=== PATIENT | female | born 1935 | race Caucasian/White ===

== ENCOUNTER 2017-12-12 17:43 | Emergency (ER) | payer MEDICARE, MEDICAID ==
[~2017-12-12] VITALS: Ht 167.6 cm; Wt 68.0 kg
[~2017-12-12 17:43] MED LIST: ACET325T53 PO; ALPR1TAB2 PO; BISA10SU8 RC; BUDE0.5A4 NEB; CYAN500T4 PO; DILT30TA2 PO; IPRA3AMP IH; LEVO25TA7 PO; OXYC-121 PO; PRED10TA PO; SENN-167 PO; THEO400T PO
--- NOTE | 2017-12-12 18:06 | NUR ---
[facility] FROM [facility] DT COUGH X 3 WEEKS WITH EPISODE OF SOB./ PATIENT RECEIVED ON O2 VIA NC @3LPM, SATING 95%. PATIENT NOT IN DISTRESS. AFEBRILE. VSS
--- NOTE | 2017-12-12 18:26 | NUR ---
RT AWRE OF BREATHING TREATMENT
[2017-12-12 18:30] LABS: BASOPHILS % (AUTO) 0.6 % (0.0-2.0); EOSINOPHILS # (AUTO) 0.3 /CMM (0.0-0.7); EOSINOPHILS % (AUTO) 3.5 % (0.0-6.0); HEMATOCRIT 35 % (33-45); HEMOGLOBIN 11.8 g/dL (11.5-14.8); LYMPHOCYTES # (AUTO) 2.1 /CMM (0.8-4.8); MEAN CORPUSCULAR HEMOGLOBIN 30 PG (26.0-33.0); MEAN CORPUSCULAR HGB CONC 34 g/dl (31.0-36.0); MEAN CORPUSCULAR VOLUME 87 fL (82-100); MONOCYTES # (AUTO) 0.6 /CMM (0.1-1.30); MONOCYTES % (AUTO) 6.8 % (2.0-12.0); NEUTROPHILS # (AUTO) 5.1 /CMM (1.8-8.9); NEUTROPHILS % (AUTO) 63.1 % (43.0-81.0); PLATELET COUNT (AUTO) 190 /CMM (150-450); RDW COEFFICIENT OF VARIATION 15.4 (11.5-15.0); WHITE BLOOD COUNT (AUTO) 8.1 K/uL (4.3-11.0)
[2017-12-12] MEDS ORDERED: IPRATROPIUM NEB FS 0.5 MG/2.5 ML AMPUL.NEB NEB ONE (18:30)
[2017-12-12] MEDS ORDERED: ALBUTEROL FS 2.5 MG/3 ML VIAL.NEB NEB ONE (18:30)
[2017-12-12 18:34] LABS: ABG BASE EXCESS 6.8 mmol/L; ABG OXYGEN SATURATION 93.9 % (92.0-98.5); ABG PCO2 55.7 mmHg (35.0-45.0); ABG PH 7.393 (7.350-7.450); ABG PO2 70.9 mmHg (75.0-100.0); AaDO2 92.1 mmHg; COHb 0.1 % (0.5-1.5); MetHb 0.5 % (0.0-1.5); O2Hb 93.3 % (94.0-97.0); SITE, ABG Right Radial; VENT MODE, BG 3L NC
[2017-12-12 18:39] LABS: CALCIUM, SERUM 8.7 mg/dL (8.5-10.1); CARBON DIOXIDE 32 mmol/L (21-32); CHLORIDE 103 mmol/L (98-107); CREATININE 0.8 mg/dL (0.6-1.3); GLUCOSE 89 mg/dL (74-106); POTASSIUM 3.9 mmol/L (3.5-5.1); SODIUM SERUM 139 mmol/L (136-145); UREA NITROGEN, BLOOD 18 mg/dL (7-18)
[2017-12-12 18:46] LABS: TROPONIN I < 0.017 ng/mL (0.00-0.056)
[2017-12-12 18:54] LABS: B-TYPE NATRIURETIC PEPTIDE 471 PG/ML (0-125)
--- NOTE | 2017-12-12 18:55 | NUR ---
RT MADE AWARE OF BREATHING TREATMENT
--- NOTE | 2017-12-12 18:59 | NUR ---
[facility]
[2017-12-12] MEDS ORDERED: ALBUTEROL FS 2.5 MG/3 ML VIAL.NEB ONE (19:00)
[2017-12-12] MEDS ORDERED: IPRATROPIUM NEB FS 0.5 MG/2.5 ML AMPUL.NEB ONE (19:00)
--- NOTE | 2017-12-12 19:05 | NUR ---
BREATHING TX ONGOING
--- NOTE | 2017-12-12 20:30 | NUR ---
PATIENT REPORTS "BREATHING BETTER" AFTER TREATMENT. NO SOB NOTED. VSS.
--- NOTE | 2017-12-12 20:31 | NUR ---
AMBULANCE ETA 7
--- NOTE | 2017-12-12 21:02 | NUR ---
ENDORSED CARE TO [facility] STAFF FOR TRAPORT. IV removed. Catheter intact and site benign. Pressure and 4x4 applied to site. No bleeding noted. Patient discharged to retirement in stable condition. Written and verbal after care instructions given. Patient verbalizes understanding of instruction. vss. nad noted on dc. No further complaints.
[2017-12-12 21:04] VITALS: BP 143/62
== END 2017-12-12 21:05 ==
LOC: ER 17:44
DX: J44.9 Chronic obstructive pulmonary disease, unspecified (principal); D64.9 Anemia, unspecified; E03.9 Hypothyroidism, unspecified; F32.9 Major depressive disorder, single episode, unspecified; F41.9 Anxiety disorder, unspecified; I11.0 Hypertensive heart disease with heart failure; I50.9 Heart failure, unspecified; K21.9 Gastro-esophageal reflux disease without esophagitis; Z66 Do not resuscitate
CPT/HCPCS: 36415; 36600; 71045; 80048; 83880; 84484; 85025; 93005; 94640 ×2; 99285; A4606; Z7610